=== PATIENT | female | born 1995 | race Caucasian/White ===

== ENCOUNTER 2017-01-09 00:15 | Emergency (ER) | payer SELFPAY ==
[2017-01-09 01:08] VITALS: BP 116/82
== END 2017-01-09 01:08 | disposition home or self-care (01) ==
LOC: ED 00:15
DX: S09.90XA Unspecified injury of head, initial encounter (principal); V49.40XA Driver injured in collision with unspecified motor vehicles in traffic accident, initial encounter; Y93.89 Activity, other specified; Y99.8 Other external cause status; Y92.89 Other specified places as the place of occurrence of the external cause